=== PATIENT | male | born 1975 | race Caucasian/White ===

== ENCOUNTER 2023-07-24 07:50 | Emergency (ER) | payer MEDICARE, SELFPAY ==
[2023-07-24 07:53] VITALS: BP 170/115
[2023-07-24 08:03] VITALS: BMI 23.3
--- NOTE | 2023-07-24 08:14 | ED.GENMED ---
History of Present Illness
General
Chief Complaint: Chest Pain
Time Seen by Provider: 07/24/23 08:00
Travel History
Have you had any contact with someone who has COVID-19?: No
Do you have any symptoms of coronavirus? Fever > 100 degrees, chills, cough, shortness of breath, sore throat, loss of taste or smell, muscle aches, or headache?: No
Past History
Past History
ED Past Medical History: Psychiatric
ED Past Surgical History: None
Patient has exhibited threatening behavior?: No
Social History
Tobacco: Smoker
Alcohol: Occasional
Drug: None
Personal: Single
Living: with family
Employment: Employed
Family History
Family History: Negative CAD
Course
Orders/Labs/Results
Orders:
Orders
07/24/23 07:52
Electrocardiogram (*1) Urgent
Reason for Study: Chest Pain
Cardiac Monitoring- Treatment ONCE
EKG- Treatment ONCE
IV Insert/Care/Rem.- Treatment PRN
O2 Therapy [RESP] Urgent
Titrate/Wean O2 to maintain O2 sat greater than (%): 90
Special Instructions: Maintain sats >/=90%
Pulse Ox/spot Check [RESP] Urgent
Quantity: 1
Special Instructions: ON ROOM AIR
07/24/23 08:03
Crisis Consult Urgent
Reason for Consult: SI
07/24/23 08:08
Acetaminophen Urgent
Comment: ADD ON
Alcohol Urgent
Complete Blood Count/With Diff Urgent
Comprehensive Metabolic Panel Urgent
Lipase Urgent
Comment: ADD ON
Magnesium Urgent
Comment: ADD ON
Salicylate Urgent
Comment: ADD ON
Troponin I Urgent
07/24/23 08:13
Add On- LAB Urgent
Tests Added?: tylenol, aspirin, magnesium, alcohol
07/24/23 08:52
Add On- LAB Urgent
Tests Added?: lipase
0.9% Sodium Chloride 1000 ml [Nss] 1,000 ml IV BOLUS
Pantoprazole [Protonix IV] 40 mg IV NOW STA
07/24/23 08:54
Lorazepam [Ativan] 0.5 mg IV NOW STA
07/24/23 09:30
Drug Screen, Urine [Urine Drug Abuse Screen] Urgent
Date Specimen was Collected: 07/24/23
Time Specimen was Collected: 08:11
Fentanyl, Urine Urgent
07/24/23 13:28
Electrocardiogram (*1) Urgent
Reason for Study: Chest Pain
EKG- Treatment ONCE
07/24/23 14:04
Troponin I Urgent
07/24/23 17:16
Crisis Consult Urgent
Reason for Consult: pysch
Abnormal Lab Results
07/24/23 07/24/23
08:08 09:30
Plt Count 403 H 10^3/uL
(130-400)
Absolute Monos (auto) 0.9 H 10^3/uL
(0.1-0.6)
Monocytes % 11.0 H %
(1.7-9.3)
Chloride 96 L mmol/L
(98-107)
Glucose 109 H mg/dl
(70-99)
Salicylates < 1.0 L mg/dl
(2.0-20.0)
Acetaminophen < 10 L ug/ml
(10-30)
Ur Amphetamines Screen Positive H
(Negative)
U Methamphetamines Scrn Positive H
(Negative)
07/24/23 08:08
07/24/23 08:08
Vital Signs
Initial and Last Documented VS:
Initial Vital Signs
Temp Pulse Resp BP Pulse Ox
98.7 F 122 20 170/115 97
07/24/23 07:53 07/24/23 07:53 07/24/23 07:53 07/24/23 07:53 07/24/23 07:53
Last Documented Vital Signs
Temp Pulse Resp BP Pulse Ox
98.7 F 100 18 129/87 100
07/24/23 07:53 07/24/23 13:00 07/24/23 13:00 07/24/23 11:56 07/24/23 12:15
*EKG
Interpreted by ED Provider?: Yes
EKG Intrepretation Date: 07/24/23
Heart Rate: 115
Rate: tachycardiac
Rhythm: sinus
Vancleve: normal axis
Interval: normal interval
QRS Pattern: normal QRS
ED Attending Note
-
Portions of this chart may have been created with voice recognition software.� Occasional wrong word or��sound alike� substitutions may have occurred due to the inherent limitations of voice recognition software.
Discharge Plan
Departure
Patient Disposition: [facility]
Date of Disposition: 07/24/23
Time of Disposition: 15:34
Patient Status:: 201
Discharge Problem:
Chest pain, Drug abuse, Depression
Instructions: Depression, Adult (DC), Drug Misuse and Addiction (DC), Chest Pain PCP Follow Up
Prescriptions:
No Action
No Current Medications
0
Referrals:
Cyril Bravo MD [Family Provider] -
Activity Restrictions/Additional Instructions:
As discussed, you are being discharged to [facility] for further evaluation and treatment.
Interventions
Interventions:
*Risk Screen - Suicide Last Done: 07/24/23 07:53
*General Assessment Last Done: 07/24/23 07:53
*Neglect/Abuse Screening Last Done: 07/24/23 07:53
ED- Fall Risk Assessment Last Done: 07/24/23 08:17
*ED COVID-19 Vaccine History Last Done: 07/24/23 08:04
ED- Cardiac Assessment Last Done: 07/24/23 08:17
ED- Neurological Assessment Last Done: 07/24/23 08:17
ED-Psychological Assessment Last Done: 07/24/23 08:17
ED- Pulmonary Assessment Last Done: 07/24/23 08:17
[2023-07-24 08:25] LABS: % Basophils 0.9 % (0-2); % Eosinophils 2.1 % (0-6); % Immature Granulocytes 0.4 % (0-0.5); % Neutrophils 62.6 % (42.2-75.2); Absolute Basophils 0.1 10^3/uL (0-0.2); Absolute Eosinophils 0.2 10^3/uL (0-0.7); Absolute Monocytes 0.9 10^3/uL (0.1-0.6); Absolute Neutrophils 5.4 10^3/uL (1.4-6.5); Hematocrit 46.9 % (39.0-52.0); Hemoglobin 16.7 g/dL (13.0-18.0); Mean Corp Hgb Conc. 35.6 g/dL (33.0-37.0); Mean Corpuscular Hgb 30.4 pg (27.0-31.0); Mean Corpuscular Volume 85.3 fL (80.0-94.0); Mean Platelet Volume 8.9 fL (7.4-10.4); Nucleated Red Blood Cells % 0 % (-); Platelet Count 403 10^3/uL (130-400); Red Cell Dist. Width 12.7 % (11.5-14.5); White Blood Cell Count 8.6 10^3/uL (4.8-10.8)
[2023-07-24 08:36] LABS: ALT (SGPT) 20 U/L (0-50); AST (SGOT) 29 U/L (17-59); Albumin 4.7 g/dl (3.5-5.0); Alkaline Phosphatase 70 U/L (38-126); Blood Urea Nitrogen 18 mg/dl (9-20); Calcium 10.2 mg/dl (8.4-10.2); Carbon Dioxide 26 mmol/L (22-30); Chloride 96 mmol/L (98-107); Estimated Creatinine Clearance 122 ml/min; Glucose 109 mg/dl (70-99); Magnesium 1.9 mg/dl (1.6-2.3); Potassium 4.3 mmol/L (3.5-5.1); Sodium 136 mmol/L (135-145); Total Protein 7.8 g/dl (6.3-8.2); eGFR > 60.00
[2023-07-24 08:47] LABS: Troponin I < 0.012 ng/ml
[2023-07-24 08:51] LABS: Acetaminophen < 10 ug/ml (10-30); Salicylate < 1.0 mg/dl (2.0-20.0)
[2023-07-24 09:20] LABS: Lipase 69 U/L (23-300)
[2023-07-24] MEDS: NSS 1000 IV (09:20)
[2023-07-24] MEDS: ATIVAN 0.5 MG IV (09:21)
[2023-07-24] MEDS: PROTONIX IV 40 MG IV (09:21)
[2023-07-24 09:26] VITALS: BP 154/108
[2023-07-24 10:13] LABS: Amphetamines Positive (Negative); Barbiturates Negative (Negative); Benzodiazepines Negative (Negative); Buprenorphine Negative (Negative); Cocaine Negative (Negative); Marijuana Negative (Negative); Methadone Negative (Negative); Methamphetamines Positive (Negative); Opiates Negative (Negative); Phencyclidine Negative (Negative); Tricyclic Antidepressants Negative (Negative)
[2023-07-24 10:45] LABS: Fentanyl, Urine Negative (Negative)
[2023-07-24 11:56] VITALS: BP 129/87
[2023-07-24 14:53] LABS: Troponin I < 0.012 ng/ml
--- NOTE | 2023-07-24 18:52 | ED.CRISIS ---
ED Crisis Note
ED Crisis Note
Subjective:
201
Objective:
Suicidal ideations
Assessment/Plan:
Patient has committed suicidal ideations and is agreeable to being placed for inpatient psychiatric treatment. Patient discharged from ED to let them to crisis
--- NOTE | 2023-08-11 02:35 | ED.GENMED ---
History of Present Illness
General
Chief Complaint: Chest Pain
Source: patient
Exam Limitations: none
Time Seen by Provider: 07/24/23 08:00
Nursing documentation reviewed up to this point in time: agreed with
Travel History
Have you had any contact with someone who has COVID-19?: No
Do you have any symptoms of coronavirus? Fever > 100 degrees, chills, cough, shortness of breath, sore throat, loss of taste or smell, muscle aches, or headache?: No
History of Present Illness
History of Present Illness:
Patient with history anxiety disorder and drug abuse, presents ED for an evaluation secondary to chest pain after 'snorting methamphetamine'. In addition, patient admits to having had suicidal thoughts. Denies fever or chills. Denies shortness of
breath. Denies nausea or vomiting. Denies use of any other medications. Denies recent illness. Denies headache. Chest pain described as sharp, nonradiating, without any alleviating or exacerbating factors.
Past History
Past History
ED Past Medical History: Psychiatric
ED Past Surgical History: None
Patient has exhibited threatening behavior?: No
Social History
Tobacco: Smoker
Alcohol: Occasional
Drug: None
Personal: Single
Living: with family
Employment: Employed
Family History
Family History: Negative CAD
Review of Systems
Review of Systems
Allergies reviewed?: Yes
All Other Systems: ROS reviewed and negative except as documented in HPI and ROS
Constitutional: Reports no symptoms
EENT: Reports no symptoms
Respiratory: Reports no symptoms; Denies trouble breathing
Cardiac: Reports chest pain
ABD/GI: Reports no symptoms
Musculoskeletal: Reports no symptoms
Skin: Reports no symptoms
Neurological: Reports no symptoms
Phy Exam
Physical Exam
Physical Exam:
Physical Exam
General: no apparent distress, not acutely ill. afebrile
Head: nc/at. eomi
Neck: supple. no meningeal signs.
Heart: s1/s2 regular rate and rhythm, no murmur. equal radial pulses.
Lungs: no acute respiratory distress. clear bilaterally. chest wall nontender to palpation.
Abdomen: normal bowel sounds. not tender.
Neuro: alert and oriented. no focal neurological deficits
Skin: no rash
Psychiatric: well kept. interactive and cooperative
Extremities: no edema. no calf tenderness.
Scores
Heart Score for Chest Pain Patients
STEMI patient?: Not applicable
Course
Orders/Labs/Results
Orders:
Orders
07/24/23 07:52
Electrocardiogram (*1) Urgent
Reason for Study: Chest Pain
Cardiac Monitoring- Treatment ONCE
EKG- Treatment ONCE
IV Insert/Care/Rem.- Treatment PRN
O2 Therapy [RESP] Urgent
Titrate/Wean O2 to maintain O2 sat greater than (%): 90
Special Instructions: Maintain sats >/=90%
Pulse Ox/spot Check [RESP] Urgent
Quantity: 1
Special Instructions: ON ROOM AIR
07/24/23 08:03
Crisis Consult Urgent
Reason for Consult: SI
07/24/23 08:08
Acetaminophen Urgent
Comment: ADD ON
Alcohol Urgent
Complete Blood Count/With Diff Urgent
Comprehensive Metabolic Panel Urgent
Lipase Urgent
Comment: ADD ON
Magnesium Urgent
Comment: ADD ON
Salicylate Urgent
Comment: ADD ON
Troponin I Urgent
07/24/23 08:13
Add On- LAB Urgent
Tests Added?: tylenol, aspirin, magnesium, alcohol
07/24/23 08:52
Add On- LAB Urgent
Tests Added?: lipase
0.9% Sodium Chloride 1000 ml [Nss] 1,000 ml IV BOLUS
Pantoprazole [Protonix IV] 40 mg IV NOW STA
07/24/23 08:54
Lorazepam [Ativan] 0.5 mg IV NOW STA
07/24/23 09:30
Drug Screen, Urine [Urine Drug Abuse Screen] Urgent
Date Specimen was Collected: 07/24/23
Time Specimen was Collected: 08:11
Fentanyl, Urine Urgent
07/24/23 13:28
Electrocardiogram (*1) Urgent
Reason for Study: Chest Pain
EKG- Treatment ONCE
07/24/23 14:04
Troponin I Urgent
07/24/23 17:16
Crisis Consult Urgent
Reason for Consult: pysch
Abnormal Lab Results
07/24/23 07/24/23
08:08 09:30
Plt Count 403 H 10^3/uL
(130-400)
Absolute Monos (auto) 0.9 H 10^3/uL
(0.1-0.6)
Monocytes % 11.0 H %
(1.7-9.3)
Chloride 96 L mmol/L
(98-107)
Glucose 109 H mg/dl
(70-99)
Salicylates < 1.0 L mg/dl
(2.0-20.0)
Acetaminophen < 10 L ug/ml
(10-30)
Ur Amphetamines Screen Positive H
(Negative)
U Methamphetamines Scrn Positive H
(Negative)
07/24/23 08:08
07/24/23 08:08
Vital Signs
Initial and Last Documented VS:
Initial Vital Signs
Temp Pulse Resp BP Pulse Ox
98.7 F 122 20 170/115 97
07/24/23 07:53 07/24/23 07:53 07/24/23 07:53 07/24/23 07:53 07/24/23 07:53
Last Documented Vital Signs
Temp Pulse Resp BP Pulse Ox
98.7 F 100 18 129/87 100
07/24/23 07:53 07/24/23 13:00 07/24/23 13:00 07/24/23 11:56 07/24/23 12:15
MDM/Problems Addressed
MDM/Problems Addressed:
Patient medically cleared and will be transition to [facility] for further evaluation and treatment.
*Critical Care Note
Total Time (30-74mins, 75-104mins- exclusive of procedures): Not Applicable
ED Attending Note
-
Portions of this chart may have been created with voice recognition software.� Occasional wrong word or��sound alike� substitutions may have occurred due to the inherent limitations of voice recognition software.
Discharge Plan
Departure
Patient Disposition: [facility]
Date of Disposition: 08/11/23
Time of Disposition: 02:37
Patient Status:: 201
Discharge Problem:
Chest pain, Drug abuse, Depression
Instructions: Depression, Adult (DC), Drug Misuse and Addiction (DC), Chest Pain PCP Follow Up
Prescriptions:
No Action
No Current Medications
0
Referrals:
Cyril Bravo MD [Family Provider] -
Activity Restrictions/Additional Instructions:
As discussed, you are being discharged to [facility] for further evaluation and treatment.
Interventions
Interventions:
*Risk Screen - Suicide Last Done: 07/24/23 07:53
*General Assessment Last Done: 07/24/23 07:53
*Neglect/Abuse Screening Last Done: 07/24/23 07:53
ED- Fall Risk Assessment Last Done: 07/24/23 08:17
*ED COVID-19 Vaccine History Last Done: 07/24/23 08:04
*Nursing Disposition Last Done: 07/24/23 18:57
ED- Cardiac Assessment Last Done: 07/24/23 08:17
ED- Neurological Assessment Last Done: 07/24/23 08:17
ED-Psychological Assessment Last Done: 07/24/23 08:17
ED- Pulmonary Assessment Last Done: 07/24/23 08:17
Discharge Date and Time
Discharge Date/Time: 07/24/23 18:58
== END 2023-07-24 18:58 ==
LOC: EMR 07:50
PROVIDERS: Student in an Organized Health Care Education/Training Program; EMERGENCY PHYSICIAN Emergency Medicine; FAMILY PHYSICIAN Family Medicine
DX: R45.851 Suicidal ideations (principal); R03.0 Elevated blood-pressure reading, without diagnosis of hypertension
CPT/HCPCS: 99285; 96374; 96375; 96361; 80053; 80143; 80179; 80306; 80307; 82077; 83690; 83735; 84484; 85025; 93005

== ENCOUNTER 2024-01-19 07:16 | Emergency (ER) | payer MEDICARE, SELFPAY ==
[2024-01-19 07:18] VITALS: BP 150/91
[2024-01-19 07:20] VITALS: BP 150/91
[2024-01-19 07:26] VITALS: BMI 23.5
--- NOTE | 2024-01-19 07:32 | ED.GENMED ---
History of Present Illness
General
Chief Complaint: Substance Abuse
Source: patient and ambulance crew
Exam Limitations: none
Time Seen by Provider: 01/19/24 07:21
Nursing documentation reviewed up to this point in time: agreed with
History of Present Illness
History of Present Illness:
48-year-old male past medical history of anxiety substance abuse presenting to the emergency department today with concerns of receiving tampered with meth. Patient claims that he has had dry mouth and a fast heart rate because of it. Denies any
chest pain shortness of breath abdominal pain at this point. Denies any nausea vomiting.
Past History
Past History
ED Past Medical History: Psychiatric
ED Past Surgical History: None
Patient has exhibited threatening behavior?: No
Social History
Tobacco: Smoker
Alcohol: Occasional
Drug: None
Personal: Single
Living: with family
Employment: Employed
Family History
Family History: Negative CAD
Review of Systems
Review of Systems
Allergies reviewed?: Yes
All Other Systems: ROS reviewed and negative except as documented in HPI and ROS
Phy Exam
Physical Exam
Physical Exam:
GENERAL: Alert , in no apparent distress
EYE: pupils equal and reactive
NECK: Supple, no significant adenopathy.
ENT: o/p clr, mmm.
CARDIAC: Tachycardic regular rhythm .
LUNGS: Clear breath sounds bilaterally, no acute respiratory distress, no wheezes/rales/rhonchi
ABDOMEN: Soft, without focal tenderness, no r/g, no cvat
NEUROLOGICAL: Alert and oriented, no focal neuro deficits
SKIN: Warm and dry, skin intact.
MUSCULOSKELETAL: No edema, well perfused.
PSYCH: Normal and appropriate interaction.
Course
Orders/Labs/Results
Orders:
Orders
01/19/24 07:30
EKG [Electrocardiogram (*1)] Urgent
Reason for Study: Fatigue / Weakness
EKG- Treatment ONCE
0.9% Sodium Chloride 1000 ml [Nss] 1,000 ml IV BOLUS
01/19/24 07:37
CBC/With Diff [Complete Blood Count/With Diff] Stat
CMP [Comprehensive Metabolic Panel] Urgent
Abnormal Lab Results
01/19/24
07:37
Absolute Monos (auto) 0.8 H 10^3/uL
(0.1-0.6)
01/19/24 07:37
01/19/24 07:37
Vital Signs
Initial and Last Documented VS:
Initial Vital Signs
Temp Pulse Resp BP Pulse Ox
98.8 F 107 18 150/91 97
01/19/24 07:18 01/19/24 07:18 01/19/24 07:18 01/19/24 07:18 01/19/24 07:18
Last Documented Vital Signs
Temp Pulse Resp BP Pulse Ox
98.8 F 99 12 124/94 98
01/19/24 07:18 01/19/24 08:00 01/19/24 08:00 01/19/24 08:00 01/19/24 08:00
MDM/Problems Addressed
MDM/Problems Addressed:
48-year-old male presenting to the emergency department today with concerns of potentially receiving tampered with meth. He denies any current chest pain shortness of breath abdominal pain no vomiting. Mildly tachycardic on arrival but otherwise
in no significant distress. Heart rate improving during ER stay labs unremarkable. No evidence of any life-threatening issue at this time. Stable for discharge.
*Critical Care Note
Total Time (30-74mins, 75-104mins- exclusive of procedures): Not Applicable
ED Attending Note
-
Portions of this chart may have been created with voice recognition software.� Occasional wrong word or��sound alike� substitutions may have occurred due to the inherent limitations of voice recognition software.
Discharge Plan
Departure
Patient Disposition: Home (Routine Discharge)
Date of Disposition: 01/19/24
Time of Disposition: 08:14
Patient with high blood pressure during this ER visit?: No
Condition: Good
Covid-19: Not Applicable
Discharge Problem:
Accidental ingestion of substance
Instructions: Polysubstance Use Disorder (DC)
Prescriptions:
No Action
No Current Medications
0
Activity Restrictions/Additional Instructions:
You came to the emergency department today with concerns of tampered with meth.. Here you had a reassuring assessment. Return to the emergency department for any worsening, new or concerning symptoms.
Interventions
Interventions:
*Risk Screen - Suicide Last Done: 01/19/24 07:18
*General Assessment Last Done: 01/19/24 07:18
*Neglect/Abuse Screening Last Done: 01/19/24 07:18
ED- Fall Risk Assessment Last Done: 01/19/24 07:26
*ED COVID-19 Vaccine History Last Done: 01/19/24 07:18
ED-Psychological Assessment Last Done: 01/19/24 07:26
Discharge Date and Time
Print Language: MONGOLIAN
[2024-01-19] MEDS: NSS 1000 IV (07:35)
[2024-01-19 07:45] LABS: % Eosinophils 2.7 % (0-6); % Immature Granulocytes 0.2 % (0-0.5); % Lymphocytes 24.6 % (20.5-51.1); % Monocytes 8.9 % (1.7-9.3); % Neutrophils 62.6 % (42.2-75.2); Absolute Basophils 0.1 10^3/uL (0-0.2); Absolute Eosinophils 0.2 10^3/uL (0-0.7); Absolute Lymphocytes 2.2 10^3/uL (1.2-3.4); Absolute Monocytes 0.8 10^3/uL (0.1-0.6); Absolute Neutrophils 5.6 10^3/uL (1.4-6.5); Hematocrit 40.1 % (39.0-52.0); Hemoglobin 14.3 g/dL (13.0-18.0); Mean Corp Hgb Conc. 35.7 g/dL (33.0-37.0); Mean Corpuscular Hgb 29.6 pg (27.0-31.0); Mean Platelet Volume 9.3 fL (7.4-10.4); Nucleated Red Blood Cells % 0 % (-); Platelet Count 353 10^3/uL (130-400); Red Blood Cell Count 4.83 10^6/uL (4.70-6.10); Red Cell Dist. Width 12.3 % (11.5-14.5); White Blood Cell Count 8.9 10^3/uL (4.8-10.8)
[2024-01-19 08:00] VITALS: BP 124/94
[2024-01-19 08:03] LABS: ALT (SGPT) 17 U/L (0-50); AST (SGOT) 28 U/L (17-59); Albumin 4.7 g/dl (3.5-5.0); Alkaline Phosphatase 60 U/L (38-126); Blood Urea Nitrogen 16 mg/dl (9-20); Calcium 9.7 mg/dl (8.4-10.2); Carbon Dioxide 26 mmol/L (22-30); Chloride 103 mmol/L (98-107); Estimated Creatinine Clearance 109 ml/min; Glucose 89 mg/dl (70-99); Potassium 4.4 mmol/L (3.5-5.1); Sodium 138 mmol/L (135-145); Total Bilirubin 1.1 mg/dl (0.2-1.3); Total Protein 7.2 g/dl (6.3-8.2); eGFR > 60.00
--- NOTE | 2024-01-19 08:45 | EDRN ---
Reviewed discharge instructions with patient. Patient continues with rambling speech that people are out to get him and somehow his sister programmed his mother's phone that it goes to his sister's phone. Ambulated with steady gait to the lobby.
== END 2024-01-19 08:45 | disposition home or self-care (01) ==
LOC: EMR 07:16
PROVIDERS: Physician Assistant; EMERGENCY PHYSICIAN Emergency Medicine
DX: R68.2 Dry mouth, unspecified (principal); R00.0 Tachycardia, unspecified; T50.905A Adverse effect of unspecified drugs, medicaments and biological substances, initial encounter; Y92.9 Unspecified place or not applicable; F19.10 Other psychoactive substance abuse, uncomplicated; F41.9 Anxiety disorder, unspecified; F17.200 Nicotine dependence, unspecified, uncomplicated
CPT/HCPCS: 99283; 96360; 80053; 85025; 93005

== ENCOUNTER 2024-01-19 19:57 | Emergency (ER) | payer MEDICARE, SELFPAY ==
[2024-01-19 20:01] VITALS: BP 180/132
--- NOTE | 2024-01-19 21:18 | ED.GENMED ---
History of Present Illness
General
Chief Complaint: Substance Abuse
Time Seen by Provider: 01/19/24 21:01
History of Present Illness
History of Present Illness:
HPI: This is the patient's third visit to the ED in the last 2 days. He was here yesterday but left before being seen. He was seen earlier this morning. He says he is homeless. [place] [id number] [place]
[address]. He cannot provide any meaningful history. The patient did not report any suicidal ideation to me however the history is very limited.
EXAM:
GENERAL: Well appearing in no distress
HEENT: Moist oral mucosa
CARDIOVASCULAR: No murmurs, normal heart rate, regular rhythm, No chest wall tenderness
PULMONARY: No respiratory distress, breath sounds are clear and equal
ABDOMEN: Soft with no peritoneal signs, no tenderness
NEUROLOGIC: Excellent strength all extremities, no coordination deficits
PSYCHIATRIC: The patient has a bizarre affect. Tells me he is watching TV when the TV is not even on. He appears delusional. He has tangential thoughts. However, he does not appear to be intoxicated at this time. He is not oriented to month or
time of day, he lacks insight
EXTREMITIES: Nontender, no edema, moves all extremities equally
SKIN: No rash, no lesions
TIME OF INITIAL ENCOUNTER: 9:25 PM
NUMBER AND COMPLEXITY OF PROBLEMS ADDRESSED AT THE ENCOUNTER
� Chronic conditions affecting care: Meth use
� Acute Exacerbation and/or Progression of Chronic Illness: This is an acute problem
� Differential Diagnosis includes: Meth psychosis, primary psychiatric illness such as schizophrenia or bipolar
AMOUNT AND/OR COMPLEXITY OF DATA TO BE REVIEWED AND ANALYZED
� I performed an independent evaluation of and my interpretation is:
EKG:
CT:
X-rays:
Laboratory Studies: I reviewed the labs from earlier today, UDS pending
Other:
� Review of other/old records: I reviewed records. The patient was seen here earlier this morning. That time the patient had an unremarkable CBC, chemistries. UDS from this past July was positive for amphetamines and
alcohol is undetected.
� Clinical information was obtained by an independent historian: Unavailable
� Prescriptions/Medications Considered but not given: Did not give any meds as the patient has been cooperative here
� Further testing considered but not performed:
RISK OF COMPLICATIONS AND/OR MORBIDITY OR MORTALITY OF PATIENT MANAGEMENT
� Social determinants of health affecting care: States he is homeless
� Discussion with other providers: He was evaluated crisis and he is willing to go to [facility] if that is available.
� Escalation of care including admission/observation vs risk of discharge considered: I reviewed the labs from earlier today. I also reviewed prior urine drug screen which was positive for meth. The patient currently is
delusional and I suspect mixed psychiatric and substance use disorder.
Past History
Past History
ED Past Medical History: Psychiatric
ED Past Surgical History: None
Patient has exhibited threatening behavior?: No
Social History
Tobacco: Smoker
Alcohol: Occasional
Drug: None
Personal: Single
Living: with family
Employment: Employed
Family History
Family History: Negative CAD
Phy Exam
Physical Exam
Physical Exam:
See HPI
Course
Orders/Labs/Results
Orders:
Orders
01/19/24 21:33
Crisis Consult Urgent
Reason for Consult: mental health eval
01/19/24 22:20
Urine Drug Abuse Screen Urgent
Date Specimen was Collected: 01/19/24
Time Specimen was Collected: 22:21
Vital Signs
Initial and Last Documented VS:
Initial Vital Signs
Temp Pulse Resp BP Pulse Ox
98.3 F 100 24 180/132 98
01/19/24 20:01 01/19/24 20:01 01/19/24 20:01 01/19/24 20:01 01/19/24 20:01
Last Documented Vital Signs
Temp Pulse Resp BP Pulse Ox
98.3 F 65 17 112/84 98
01/19/24 20:01 01/20/24 11:22 01/20/24 11:22 01/20/24 11:22 01/20/24 11:22
*Critical Care Note
Total Time (30-74mins, 75-104mins- exclusive of procedures): Not Applicable
ED Attending Note
-
Portions of this chart may have been created with voice recognition software.� Occasional wrong word or��sound alike� substitutions may have occurred due to the inherent limitations of voice recognition software.
Discharge Plan
Departure
Patient Disposition: Psych Facility
Date of Disposition: 01/19/24
Time of Disposition: 22:02
Discharge Problem:
Psychosis
Prescriptions:
No Action
No Current Medications
0
Referrals:
NONE,* [Family Provider] -
Interventions
Interventions:
*Risk Screen - Suicide Last Done: 01/19/24 20:01
*General Assessment Last Done: 01/19/24 22:42
*Neglect/Abuse Screening Last Done: 01/19/24 20:01
ED- Fall Risk Assessment Last Done: 01/19/24 22:04
*ED COVID-19 Vaccine History Last Done: 01/19/24 22:43
*Nursing Disposition Last Done: 01/20/24 11:23
ED-Psychological Assessment Last Done: 01/19/24 22:02
Discharge Date and Time
Discharge Date/Time: 01/20/24 11:25
Print Language: SLOVAK
[2024-01-19 22:27] VITALS: BP 127/90
[2024-01-20 10:06] VITALS: BP 107/70
[2024-01-20 11:00] VITALS: BP 109/74
[2024-01-20 11:22] VITALS: BP 112/84
== END 2024-01-20 11:25 ==
LOC: EMR 19:57
PROVIDERS: EMERGENCY PHYSICIAN Emergency Medicine
DX: F29 Unspecified psychosis not due to a substance or known physiological condition (principal); F17.200 Nicotine dependence, unspecified, uncomplicated; Z59.00 Homelessness unspecified
CPT/HCPCS: 99285